=== PATIENT | female | born 1955 | race Caucasian/White ===

== ENCOUNTER → 2017-05-29 | Outpatient (REF) | payer BC ==
[~2017-05-29] MED LIST: ATOR1TAB21 PO; EYECAP PO; LEVO25TA5 PO; VENL37.52 PO
== END ==
LOC: M LABDRAW1 14:20
PROVIDERS: ATTEND Internal Medicine
DX: E78.5 Hyperlipidemia, unspecified (principal); E03.9 Hypothyroidism, unspecified

== ENCOUNTER 2017-06-14 07:52 | Day surgery (SDC) | payer BC ==
[~2017-06-14] VITALS: Ht 165.1 cm; Wt 61.4 kg
[~2017-06-14 07:52] MED LIST changes: +CALC600T60 PO
[2017-06-14] MEDS ORDERED: NS 1,000 ML IV ONE (08:00)
[2017-06-14] MEDS ORDERED: PROPOFOL 200 MG/20 ML VIAL As Ordered ONE (08:43)
--- NOTE | 2017-06-14 08:58 | ROOR ---
Patient Name: Rachna Engel Procedure Date: 06/14/2017 8:40 AM Date of : 1955 Age: 62 Room: [facility] Gender: Female Note Status: Finalized Procedure: Colonoscopy Indications: Screening in patient at increased risk: Colorectal cancer in brother before age 60 Providers: Julien DIEGO MD Referring MD: SCOTTIE MATHIS MD Requesting Provider: Medicines: Monitored Anesthesia Care Complications: No immediate complications. Procedure: Pre-Anesthesia Assessment: - The heart rate, respiratory rate, oxygen saturations, blood pressure, adequacy of pulmonary ventilation, and response to care were monitored throughout the procedure. The Colonoscope was introduced through the anus and advanced to the cecum, identified by appendiceal orifice and ileocecal valve. The colonoscopy was performed without difficulty. The patient tolerated the procedure well. The quality of the bowel preparation was good. Findings: The perianal and digital rectal examinations were normal. (Exam: Complete, Prep: Good or Excellent.) A 4 mm polyp was found in the sigmoid colon. The polyp was sessile. The polyp was removed with a cold snare. Resection and retrieval were complete. The exam was otherwise without abnormality on direct and retroflexion views. Impression: - (Exam: Complete, Prep: Good or Excellent.) - Small internal hemorrhoids. - One 4 mm polyp in the sigmoid colon, removed with a cold snare. Resected and retrieved. - The examination was otherwise normal on direct and retroflexion views. Recommendation: - Telephone endoscopist for pathology results in 2 weeks. - If the pathology report reveals adenomatous tissue, then repeat the colonoscopy for surveillance in 3 years. - If the pathology report indicates hyperplastic polyp, then repeat colonoscopy for screening purposes in 5 years. Julien Diego MD Julien DIEGO MD 06/14/2017 8:58:14 AM This report has been signed electronically. Number of Addenda: 0 Note Initiated On: 06/14/2017 8:40 AM Estimated Blood Loss: Estimated blood loss: none.
[2017-06-14 09:23] VITALS: BP 143/83
== END 2017-06-14 09:25 | disposition home or self-care (01) ==
LOC: M OPP 07:52
PROVIDERS: ATTEND Internal Medicine Gastroenterology
DX: Z12.11 Encounter for screening for malignant neoplasm of colon (principal); Z80.0 Family history of malignant neoplasm of digestive organs; D12.5 Benign neoplasm of sigmoid colon; K64.8 Other hemorrhoids; E03.9 Hypothyroidism, unspecified; Z85.828 Personal history of other malignant neoplasm of skin; E78.5 Hyperlipidemia, unspecified; H35.30 Unspecified macular degeneration

== ENCOUNTER → 2017-07-03 | Outpatient (CLI) | payer BC | LOC: M WHC 08:26 | DX: Z12.31 Encounter for screening mammogram for malignant neoplasm of breast (principal) | CPT/HCPCS: 77067 ==

== ENCOUNTER → 2017-07-22 | Outpatient (REF) | payer BC ==
[2017-07-22 16:01] LABS: THYROID STIMULATING HORMONE 0.924 uIU/ML (0.358-3.740)
== END ==
LOC: M LABDRAW1 13:55
DX: E03.9 Hypothyroidism, unspecified (principal)

== ENCOUNTER → 2017-09-17 | Outpatient (REF) | payer BC ==
[2017-09-17 13:44] LABS: ALBUMIN 3.8 GM/DL (3.2-5.2); ALBUMIN/GLOBULIN RATIO 1.15 (1.00-1.93); ALKALINE PHOSPHATASE 88 U/L (45-117); ALT/SGPT 21 U/L (12-78); ANION GAP 6 MEQ/L (8-16); AST/SGOT 11 U/L (7-37); BILIRUBIN,TOTAL 0.5 MG/DL (0.2-1.0); BLOOD UREA NITROGEN 25 MG/DL (7-18); CALCIUM LEVEL 8.6 MG/DL (8.8-10.2); CARBON DIOXIDE LEVEL 30 MEQ/L (21-32); CHLORIDE LEVEL 106 MEQ/L (98-107); CHOLESTEROL LEVEL 211 MG/DL (<200); CHOLESTEROL RISK RATIO 3.767 (<5); CREATININE FOR GFR 0.75 MG/DL (0.55-1.30); GLOMERULAR FILTRATION RATE > 60.0 (>45); GLUCOSE, FASTING 88 MG/DL (70-100); HDL CHOLESTEROL 56 MG/DL (>40); LDL CHOLESTEROL 132.8 MG/DL (<100); NON-HDL-C 155 MG/DL; POTASSIUM SERUM 4.7 MEQ/L (3.5-5.1); SODIUM LEVEL 142 MEQ/L (136-145); TOTAL PROTEIN 7.1 GM/DL (6.4-8.2); TRIGLYCERIDES LEVEL 111 MG/DL (<150)
[2017-09-17 18:06] LABS: THYROID STIMULATING HORMONE 0.813 uIU/ML (0.358-3.740)
== END ==
LOC: M LABDRAWP 12:59
DX: E78.5 Hyperlipidemia, unspecified (principal); E03.9 Hypothyroidism, unspecified
CPT/HCPCS: 84443

== ENCOUNTER → 2017-10-30 | Outpatient (REF) | payer BC | LOC: M SFHCLERA 12:45 | DX: D22.72 Melanocytic nevi of left lower limb, including hip (principal) | CPT/HCPCS: 88305 ==

== ENCOUNTER → 2018-03-24 | Outpatient (CLI) | payer OTHER, BC ==
[2018-03-24 18:38] LABS: ALBUMIN 3.9 GM/DL (3.2-5.2); ALBUMIN/GLOBULIN RATIO 1.26 (1.00-1.93); ALKALINE PHOSPHATASE 75 U/L (45-117); ALT/SGPT 20 U/L (12-78); ANION GAP 10 MEQ/L (8-16); AST/SGOT 10 U/L (7-37); BILIRUBIN,TOTAL 0.5 MG/DL (0.2-1.0); BLOOD UREA NITROGEN 19 MG/DL (7-18); CALCIUM LEVEL 8.9 MG/DL (8.8-10.2); CARBON DIOXIDE LEVEL 27 MEQ/L (21-32); CHLORIDE LEVEL 106 MEQ/L (98-107); CHOLESTEROL LEVEL 219 MG/DL (<200); CHOLESTEROL RISK RATIO 3.775 (<5); GLOMERULAR FILTRATION RATE > 60.0 (>45); GLUCOSE, FASTING 89 MG/DL (70-100); HDL CHOLESTEROL 58 MG/DL (>40); LDL CHOLESTEROL 140 MG/DL (<100); NON-HDL-C 161 MG/DL; POTASSIUM SERUM 4.6 MEQ/L (3.5-5.1); SODIUM LEVEL 143 MEQ/L (136-145); TRIGLYCERIDES LEVEL 105 MG/DL (<150)
== END ==
LOC: M SMT 12:35
DX: E03.9 Hypothyroidism, unspecified (principal); E78.5 Hyperlipidemia, unspecified
CPT/HCPCS: 84443

== ENCOUNTER → 2018-09-10 | Outpatient (REF) | payer MEDICARE, BC ==
[2018-09-13 14:37] LABS: HPV HYBRID CAPTURE II Negative (Negative)
== END ==
LOC: M SFHCWAGY 15:02
PROVIDERS: ATTEND Nurse Practitioner Women's Health
DX: Z12.4 Encounter for screening for malignant neoplasm of cervix (principal)
CPT/HCPCS: 87624; G0123

== ENCOUNTER → 2018-09-10 | Outpatient (CLI) | payer MEDICARE, BC ==
--- NOTE | 2018-09-10 19:16 | REPMRS ---
Patient History The patient states she had a clinical breast exam in 08/2018. Patient is postmenopausal, has history of other cancer at age 44, and had first child at age 35. Family history of colorectal cancer at age 52 in brother, breast cancer at age 62 in mother, ovarian cancer at age 50 or over in paternal aunt, breast cancer at age 50 or over in maternal aunt, breast cancer at age 50 or over in maternal aunt, breast cancer at age 50 or over in maternal aunt, breast cancer at age 51 in paternal grandmother, breast cancer at age 72 in paternal grandmother. Benign ultrasound-guided core biopsy of the right breast. Benign excisional biopsy of the left breast. Digital Woman Screen Mammo: September 10, 2018 - Exam #: [id number] Bilateral CC and MLO view(s) were taken. Technologist: Jessi Rivera, Technologist Prior study comparison: July 03, 2017, digital woman screen mammo performed at [facility]. November 16, 2015, digital woman screen mammo performed at [facility] [email or web address] to [facility]. FINDINGS: The breast tissue is extremely dense which could obscure a lesion on mammography. There has been no change in the appearance of the mammogram from the prior studies. There is a large amount of residual fibroglandular tissue which is fairly symmetric. There is no interval development of dominant mass, architectural distortion, or clustered microcalcification typical of malignancy. Large coarse benign appearing calcifications are present. There are scattered, small, benign calcifications of doubtful clinical significance. Clip at 6 o'clock of left breast as before. 3-D tomosynthesis shows no additional findings. No significant changes when compared with prior studies. Assessment: BI-RADS/ACR category 2 mammogram. Benign Findings. Recommendation Routine screening mammogram in 1 year (for women over age 40). This mammogram was interpreted with the aid of an FDA-approved computer-aided dectection system. A. Negative x-ray reports should not delay biopsy if a dominant or clinically suspicious mass is present. B. Four to eight percent of cancers are not identified by mammography. C. Adenosis and dense breast may obscure an underlying neoplasm. Her Tyrer-Cuzick lifetime risk assessment in 26.3%. With risk asssessments of 20-25% or greater, breast MRI is recommended to be added to her screening regimen. Electronically Signed By: Brett Perera MD 09/10/18 [id number]
== END ==
LOC: M WHC 14:54
PROVIDERS: ATTEND Nurse Practitioner Women's Health
DX: Z01.419 Encounter for gynecological examination (general) (routine) without abnormal findings (principal); Z12.31 Encounter for screening mammogram for malignant neoplasm of breast; Z78.0 Asymptomatic menopausal state; R92.1 Mammographic calcification found on diagnostic imaging of breast; Z86.018 Personal history of other benign neoplasm; Z80.3 Family history of malignant neoplasm of breast
CPT/HCPCS: 77063; 77067; 87624; G0101; G0123

== ENCOUNTER → 2018-11-26 | Outpatient (REF) | payer MEDICARE, BC ==
[2018-11-26 17:46] LABS: BASO # 0.1 10^3/uL (0.0-0.2); BASO % 0.8 % (0.0-1.0); EOS # 0.1 10^3/uL (0.0-0.50); EOS % 1.3 % (0.0-3.0); HEMATOCRIT 41.2 % (36.0-47.0); HEMOGLOBIN 13.3 g/dl (12.0-15.5); LYMPH # 2.3 10^3/uL (1.5-4.5); LYMPH % 32.3 % (24.0-44.0); MEAN CORPUSCULAR HEMOGLOBIN 30.2 pg (27.0-33.0); MEAN CORPUSCULAR HGB CONC 32.3 g/dl (32.0-36.5); MEAN CORPUSCULAR VOLUME 93.6 fl (80.0-96.0); MONO # 0.5 10^3/uL (0.0-0.8); MONO % 6.3 % (0.0-5.0); NEUTROPHILS # 4.2 10^3/uL (1.8-7.7); PLATELET COUNT, AUTOMATED 277 10^3/uL (150-450); WHITE BLOOD COUNT 7.2 10^3/uL (4.0-10.0)
== END ==
LOC: M SFHCWAGY 13:10
PROVIDERS: ATTEND Nurse Practitioner Women's Health
DX: R23.8 Other skin changes (principal)

== ENCOUNTER → 2019-03-31 | Outpatient (REF) | payer MEDICARE, BC ==
[2019-03-31 13:14] LABS: ALBUMIN 3.6 GM/DL (3.2-5.2); ALT/SGPT 24 U/L (12-78); BILIRUBIN,TOTAL 0.5 MG/DL (0.2-1.0); BLOOD UREA NITROGEN 24 MG/DL (7-18); CALCIUM LEVEL 9.2 MG/DL (8.8-10.2); CARBON DIOXIDE LEVEL 29 MEQ/L (21-32); CHLORIDE LEVEL 108 MEQ/L (98-107); CHOLESTEROL LEVEL 242 MG/DL (<200); CHOLESTEROL RISK RATIO 3.611 (<5); GLOMERULAR FILTRATION RATE > 60.0 (>45); GLUCOSE, FASTING 79 MG/DL (70-100); HDL CHOLESTEROL 67 MG/DL (>40); LDL CHOLESTEROL 157 MG/DL (<100); NON-HDL-C 175 MG/DL; POTASSIUM SERUM 4.6 MEQ/L (3.5-5.1); SODIUM LEVEL 143 MEQ/L (136-145); TOTAL PROTEIN 7.2 GM/DL (6.4-8.2); TRIGLYCERIDES LEVEL 88 MG/DL (<150)
== END ==
LOC: M LAB REF 12:03
PROVIDERS: ATTEND Internal Medicine
DX: E03.9 Hypothyroidism, unspecified (principal); E78.5 Hyperlipidemia, unspecified

== ENCOUNTER → 2019-04-06 | Outpatient (CLI) | payer MEDICARE, BC ==
[~2019-04-06] MED LIST changes: +PROHANCE 279.3MG/ML 15ML VIAL (A9576) As Ordered ONE
--- NOTE | 2019-04-06 19:06 | REP ---
MRI BILATERAL BREASTS WITH AND WITHOUT CONTRAST: HISTORY: Mother with breast cancer at age 62 and breast cancer in maternal aunts, paternal grandmother twice. [facility] lifetime risk of breast cancer is 26.3%. Correlation mammogram 09/10/2018. No prior MRI's of breasts. Multiple sequences were obtained in the axial, coronal, and sagittal planes prior to and following the intravenous administration of 13 mL ProHance. The images are evaluated in the dELiAs software including dynamic post-IV Gadolinium axial T1 fat sat images, subtraction images, color overlay images, CAD images and MIP reconstruction images. Parenchymal pattern is extreme bilaterally. There are a few scattered subcentimeter cysts bilaterally. No axillary adenopathy is seen. There is mild background parenchymal enhancement. No suspicious enhancing mass is seen. No morphologic abnormality is seen. Incidental note is made of a small cyst in the left lobe of the liver. IMPRESSION: Bi-RADS Category 2 benign bilateral breast MRI. There are a few scattered subcentimeter cysts in both breasts. No suspicious enhancing mass or morphologic abnormality. Yearly supplemental screening MRI of the breasts is recommended for patient's with lifetime risk of breast cancer 20% or greater. In addition to yearly screening mammography. Electronically Signed by Renzo Ford MD 04/06/2019 11:54 P
== END ==
LOC: M RAD 14:44
PROVIDERS: ATTEND Nurse Practitioner Women's Health
DX: Z01.419 Encounter for gynecological examination (general) (routine) without abnormal findings (principal); Z80.3 Family history of malignant neoplasm of breast; R92.2 Inconclusive mammogram
CPT/HCPCS: A9576; C8908

== ENCOUNTER → 2019-04-17 | Outpatient (CLI) | payer MEDICARE, BC ==
[~2019-04-17] MED LIST changes: -PROHANCE 279.3MG/ML 15ML VIAL (A9576) As Ordered ONE
--- NOTE | 2019-04-28 14:36 | DEXA ---
AP SPINE L1 - L4 1.442 2.0 3.6 LT FEMUR TOTAL 0.949 -0.5 0.8 LT NECK 0.892 -1.0 0.5 RT FEMUR TOTAL 0.883 -1.0 0.3 RT NECK 0.890 -1.1 0.4 TOTAL BODY TOTAL OTHER COMMENTS: Normal bone densitometry of the spine. There is low bone density of the hips. The increased density of the spine does represent a significant change. The decreased density of the left hip does represent a significant change. The decreased density of the right hip does represent a significant change. The density of the spine is increased 4.3% since the initial exam on 04/28/2001. The spine density has increased 2.1% since the most recent exam on 11/06/2010. The density of the left hip has decreased 11.9% since the initial exam on 04/28/2001. The density of the left hip has decreased 8.6 percent since the most recent exam on 11/06/2010. The density of the right hip has decreased 12.8% since the initial exam on 04/28/2001. The density of the right hip has decreased 6.2% since the most recent exam on 11/06/2010. FOLLOW-UP: Recommendation for the next bone density exam: 2 years. JORGE
== END ==
LOC: M WHC 11:51
PROVIDERS: ATTEND Nurse Practitioner Women's Health
DX: Z13.820 Encounter for screening for osteoporosis (principal); Z78.0 Asymptomatic menopausal state

== ENCOUNTER → 2019-10-21 | Outpatient (REF) | payer MEDICARE, BC | LOC: M SFHCWAGY 14:52 | PROVIDERS: ATTEND Nurse Practitioner Women's Health | DX: Z12.4 Encounter for screening for malignant neoplasm of cervix (principal); N95.0 Postmenopausal bleeding; N95.8 Other specified menopausal and perimenopausal disorders | CPT/HCPCS: 87624; G0123; G0463 ==

== ENCOUNTER → 2019-10-26 | Outpatient (CLI) | payer MEDICARE, BC ==
--- NOTE | 2019-10-26 13:15 | REPMRS ---
Patient History The patient states she had a clinical breast exam in September 2019. Family history of colorectal cancer at age 52 in brother, breast cancer at age 62 in mother, ovarian cancer at age 50 or over in paternal aunt, breast cancer at age 50 or over in maternal aunt, breast cancer at age 50 or over in maternal aunt, breast cancer at age 50 or over in maternal aunt, breast cancer at age 51 in paternal grandmother, breast cancer at age 72 in paternal grandmother. Benign ultrasound-guided core biopsy of the right breast. Benign excisional biopsy of the left breast. Digital Woman Screen Mammo: October 26, 2019 - Exam #: [id number] Bilateral CC and MLO view(s) were taken. Technologist: Cindy Whyte, Technologist Prior study comparison: September 10, 2018, bilateral digital woman screen mammo performed at [facility]. July 03, 2017, digital woman screen mammo performed at [facility]. November 16, 2015, digital woman screen mammo performed at [facility]. FINDINGS: The breast tissue is extremely dense which could obscure a lesion on mammography. There is a needle biopsy marker clip again noted in the inferior aspect of the left breast unchanged. There is an extremely dense symmetrical pattern of residual fibroglandular tissue. There has been no change in the appearance of the mammogram from the previous studies. There is no interval development of dominant mass, archetectural distortion, or grouped microcalcifications suggestive of malignancy. 3-D tomosynthesis shows no additional findings. Assessment: BI-RADS/ACR category 2 mammogram. Benign Findings. Recommendation Breast MRI of both breasts in 6 months. Routine screening mammogram of both breasts in 1 year (for women over age 40). This patient's Lifetime Breast Cancer RIsk is estimated at 25.2 %. Annual screening Breast MRI scanniing is recommended for patient's whose lifetime risk assessment is over 20%. This mammogram was interpreted with the aid of an FDA-approved computer-aided dectection system. Electronically Signed By: Stan Rey MD 10/26/19 [id number]
--- NOTE | 2019-10-26 16:15 | REP ---
REASON: Postmenopausal bleeding. There are no pertinent priors for comparison. Transvesical and transvaginal imaging were obtained. The uterus measures 5.7 x 2.5 x 4.2 cm. The parenchymal echopattern is within normal limits. The endometrial echocomplex is smooth and unremarkable appearing with a maximal thickness of 4 mm. Neither ovary was visualized transvesically or transvaginally. No free fluid is seen in the cul-de-sac. Urinary bladder measures approximately 10 x 10 x 9 cm. IMPRESSION: No abnormalities identified. Exam limitations as described above.
== END ==
LOC: M WHC 10:57
PROVIDERS: ATTEND Nurse Practitioner Women's Health
DX: Z12.31 Encounter for screening mammogram for malignant neoplasm of breast (principal); N95.0 Postmenopausal bleeding; Z80.0 Family history of malignant neoplasm of digestive organs; Z80.3 Family history of malignant neoplasm of breast; Z80.41 Family history of malignant neoplasm of ovary

== ENCOUNTER → 2020-05-09 | Outpatient (REF) | payer MEDICARE, BC | LOC: M LAB REF 14:15 | PROVIDERS: ATTEND Dermatology | DX: D22.62 Melanocytic nevi of left upper limb, including shoulder (principal) ==

== ENCOUNTER → 2020-05-09 | Outpatient (REF) | payer MEDICARE, BC ==
[2020-05-09 11:25] LABS: BLOOD UREA NITROGEN 26 MG/DL (7-18); CALCIUM LEVEL 9.2 MG/DL (8.8-10.2); CARBON DIOXIDE LEVEL 29 MEQ/L (21-32); CHLORIDE LEVEL 106 MEQ/L (98-107); CREATININE FOR GFR 0.82 MG/DL (0.55-1.30); GLOMERULAR FILTRATION RATE > 60.0 (>45); GLUCOSE, FASTING 102 MG/DL (70-100); POTASSIUM SERUM 4.9 MEQ/L (3.5-5.1); SODIUM LEVEL 140 MEQ/L (136-145)
== END ==
LOC: M PLALAB 08:38
PROVIDERS: ATTEND Nurse Practitioner Women's Health
DX: Z01.812 Encounter for preprocedural laboratory examination (principal); Z79.899 Other long term (current) drug therapy

== ENCOUNTER → 2020-05-13 | Outpatient (REF) | payer SELFPAY | LOC: EDSTATUS 14:05 → M LABSMTC 14:11 | PROVIDERS: ATTEND Pediatrics | DX: Z20.828 Contact with and (suspected) exposure to other viral communicable diseases (principal) ==

== ENCOUNTER → 2020-05-25 | Outpatient (CLI) | payer MEDICARE, BC ==
[~2020-05-25] MED LIST changes: +PROHANCE 279.3MG/ML 15ML VIAL As Ordered ONE
--- NOTE | 2020-05-25 10:14 | REP ---
INDICATION: DENSE BREAST TISSUE ON MAMMO. [facility] COMPARISON: Mammogram 10/26/2019, MRI 04/06/2019. TECHNIQUE: Three Taty MRI imaging was performed with a dedicated breast coil. Axial, coronal, and sagittal T1 and T2 weighted scans were obtained with and without fat saturation in the usual fashion. The study includes dynamically acquired post gadolinium-enhanced imaging with image subtraction. Maximum intensity projection and multi planar reformation imaging is included as well. This study is interpreted with the aid of Brndstr, an FDA approved computer aided detection (CAD) software program, on a dedicated breast MRI workstation. The gadolinium enhancement dose is 12 mL of intravenous ProHance. FINDINGS: There is an extreme pattern of parenchymal tissue symmetrically bilaterally. There appear to be a couple of tiny subcentimeter cysts in each breast. A cyst was seen in each breast on the prior study both of which have decreased in size. No axillary adenopathy is seen. There is mild background parenchymal enhancement. There is no suspicious enhancing mass or morphologic abnormality. There couple small cysts in the liver. IMPRESSION: BI-RADS category 2 benign bilateral breast MRI. There are couple of tiny subcentimeter cysts in each breast. There is no suspicious enhancing mass or morphologic abnormality. Yearly supplemental screening MRI of the breasts is recommended for patients with an elevated lifetime risk of breast cancer of 20% or greater, in addition to annual screening mammography, staggered every 6 months. <Electronically signed by Renzo Ford > 05/25/20 [id number]
== END ==
LOC: M RAD 08:13
PROVIDERS: ATTEND Nurse Practitioner Women's Health
DX: R92.2 Inconclusive mammogram (principal); Z80.3 Family history of malignant neoplasm of breast
CPT/HCPCS: A9576; C8908

== ENCOUNTER → 2020-12-12 | Outpatient (CLI) | payer MEDICARE, BC ==
[~2020-12-12] MED LIST changes: -PROHANCE 279.3MG/ML 15ML VIAL As Ordered ONE
--- NOTE | 2020-12-12 11:27 | REPMRS ---
Patient History The patient states she has not had a clinical breast exam in over a year. Patient is postmenopausal, has history of other cancer at age 44, and had first child at age 35. Family history of colorectal cancer at age 52 in brother, breast cancer at age 62 in mother, ovarian cancer at age 50 or over in paternal aunt, breast cancer at age 50 or over in maternal aunt, breast cancer at age 50 or over in maternal aunt, breast cancer at age 50 or over in maternal aunt, breast cancer at age 51 in paternal grandmother, breast cancer at age 72 in paternal grandmother. Benign ultrasound-guided core biopsy of the right breast. Benign excisional biopsy of the left breast. Patient states no breast complaints today. Patient has signed MRS History Sheet. Digital Woman Screen Mammo: December 12, 2020 - Exam #: [id number] Bilateral CC and MLO view(s) were taken. Technologist: Jessi Rivera, Technologist Prior study comparison: October 26, 2019, bilateral digital woman screen mammo performed at [facility]. September 10, 2018, bilateral digital woman screen mammo performed at [facility]. FINDINGS: The breast tissue is extremely dense which could obscure a lesion on mammography. Screening. Digital screening (2D) mammography was performed bilaterally in the CC and MLO projections. Additionally, breast tomosynthesis (3D mammography) was performed bilaterally in the CC and MLO projections. Todays exam was compared to the prior exam/exams. By history, the patient has no complaints of a palpable breast abnormality or other significant breast complaints. The breasts are unchanged in size and shape.Once again, dense heterogenous fibroglandular elements are seen bilaterally in a stable appearing pattern but to such a degree that the sensitivity of the mammogram in detecting cancer is decreased. There are no alejandra-soft tissue densities or spiculated masses. There is no internal architectural distortion.Once again, stable benign appearing calcifications are seen.There are no suspicious alejandra-calcific clusters. Skin thickening or nipple retraction is not present. IMPRESSION: BI-RADS Category 2- Benign Findings. There is no evidence of malignant alteration of the breasts. Followup examination recommended in one year. The Volpara volumetric breast density category is D, the breasts are extremely dense which lowers the sensitivity of mammography. This mammogram was read with the assistance of Nadege Avacen,an FDA approved computer aided detection system for mammography. The lifetime Tyrer-Cuzick score is 23.9 % ., Due to the density of the breasts or Tyrer Cuzick score of 20% or greater, MRI/whole breast screening ultrasound is warranted. Negative x-ray reports should not delay surgical consultation if a dominant or clinically suspicious mass is present. Not all breast cancers can be identified by mammography. Therefore, we recommend that you continue to perform regular breast self-examination and physical examination and then promptly contact your physician of any concerns or changes. Adenosis and dense breasts may obscure an underlying neoplasm. Assessment: BI-RADS/ACR category 2 mammogram. Benign Findings. Recommendation Routine screening mammogram of both breasts in 1 year. Electronically Signed By: Daniele Witt DO 12/12/20 1126
== END ==
LOC: M WHC 08:03
PROVIDERS: ATTEND Internal Medicine
DX: Z12.31 Encounter for screening mammogram for malignant neoplasm of breast (principal)

== ENCOUNTER → 2021-05-29 | Outpatient (CLI) | payer MEDICARE, BC ==
[2021-05-29 12:38] LABS: BLOOD UREA NITROGEN 18 MG/DL (7-18); CARBON DIOXIDE LEVEL 33 MEQ/L (21-32); CHLORIDE LEVEL 103 MEQ/L (98-107); CREATININE FOR GFR 0.89 MG/DL (0.55-1.30); GLOMERULAR FILTRATION RATE > 60.0 (>45); GLUCOSE, FASTING 97 MG/DL (70-100); POTASSIUM SERUM 4.9 MEQ/L (3.5-5.1); SODIUM LEVEL 140 MEQ/L (136-145)
== END ==
LOC: M LAB 10:16
PROVIDERS: ATTEND Nurse Practitioner Women's Health
DX: Z01.812 Encounter for preprocedural laboratory examination (principal); Z79.899 Other long term (current) drug therapy

== ENCOUNTER → 2021-05-29 | Outpatient (CLI) | payer MEDICARE, BC ==
[~2021-05-29] MED LIST changes: +PROHANCE 279.3MG/ML 15ML VIAL As Ordered ONE
== END ==
LOC: M RAD 10:21
PROVIDERS: ATTEND Nurse Practitioner Women's Health
DX: Z01.812 Encounter for preprocedural laboratory examination (principal); Z12.31 Encounter for screening mammogram for malignant neoplasm of breast; Z80.3 Family history of malignant neoplasm of breast; N60.01 Solitary cyst of right breast; Z79.899 Other long term (current) drug therapy
CPT/HCPCS: 36415; 80048; A9576; C8908

== ENCOUNTER → 2021-08-26 | Outpatient (CLI) | payer MEDICARE, BC ==
[~2021-08-26] MED LIST changes: +D31000TA2 PO; +KP F1200 PO; -PROHANCE 279.3MG/ML 15ML VIAL As Ordered ONE; +VENL75CA47 PO; +[UNRECOGNIZED DRUG - OTHER] PO
== END ==
LOC: M LABSMTC 11:05
PROVIDERS: ATTEND Anesthesiology
DX: Z01.818 Encounter for other preprocedural examination (principal); Z11.52 Encounter for screening for COVID-19

== ENCOUNTER 2021-08-31 06:58 | Day surgery (SDC) | payer MEDICARE, BC ==
[~2021-08-31] VITALS: Ht 163.8 cm; Wt 62.6 kg
[~2021-08-31 06:58] MED LIST changes: -D31000TA2 PO; +LIDOCAINE 2% 100MG/5ML SDV (FOR ANES.) As Ordered ONE; +NS 1,000 ML IV ONE; +VITA100093 PO; +propofoL 200 MG/20 ML VIAL As Ordered ONE
[2021-08-31 09:01] VITALS: BP 108/74
== END 2021-08-31 09:15 | disposition home or self-care (01) ==
LOC: M OPP 06:58
PROVIDERS: ATTEND Internal Medicine Gastroenterology
DX: Z12.11 Encounter for screening for malignant neoplasm of colon (principal); Z86.010 Personal history of colon polyps; Z80.0 Family history of malignant neoplasm of digestive organs; K63.5 Polyp of colon; K64.8 Other hemorrhoids; Z79.899 Other long term (current) drug therapy